=== PATIENT | male | born 1990 | race Caucasian/White ===

== ENCOUNTER 2021-06-16 22:45 | Emergency (ER) | payer OTHER, SELFPAY | END 2021-06-16 23:17 | disposition home or self-care (01) | LOC: ERS 22:45 | DX: Z02.89 Encounter for other administrative examinations (principal); F17.210 Nicotine dependence, cigarettes, uncomplicated; V89.2XXA Person injured in unspecified motor-vehicle accident, traffic, initial encounter | CPT/HCPCS: 99284 ==